=== PATIENT | male | born 2000 | race Caucasian/White ===

== ENCOUNTER 2020-01-29 03:00 | Emergency (ER) | payer OTHER ==
[2020-01-29] MEDS ORDERED: Ondansetron PF 4 MG/2 ML Vial ONE (03:03)
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
== END 2020-01-29 07:02 | disposition home or self-care (01) ==
LOC: ERS 03:00
DX: S03.2XXA Dislocation of tooth, initial encounter (principal); F10.129 Alcohol abuse with intoxication, unspecified; M95.0 Acquired deformity of nose; F17.210 Nicotine dependence, cigarettes, uncomplicated; V19.9XXA Pedal cyclist (driver) (passenger) injured in unspecified traffic accident, initial encounter; Y93.55 Activity, bike riding
CPT/HCPCS: 70450; 70486; 72125; 96372; J2405